=== PATIENT | male | born 1960 | race Caucasian/White ===

== ENCOUNTER → 2016-09-28 | Outpatient (CLI) | payer MEDICARE, OTHER | LOC: RAD 10:18 | DX: M54.5 Low back pain (principal); M54.2 Cervicalgia; M25.551 Pain in right hip; M47.812 Spondylosis without myelopathy or radiculopathy, cervical region; M25.78 Osteophyte, vertebrae; M46.97 Unspecified inflammatory spondylopathy, lumbosacral region; M51.34 Other intervertebral disc degeneration, thoracic region | CPT/HCPCS: 72050; 72072; 72110; 73502 ==